=== PATIENT | female | born 1990 | race Caucasian/White ===

== ENCOUNTER 2018-07-14 18:35 | Emergency (ER) | payer OTHER ==
[2018-07-14 19:42] VITALS: BP 112/77; PULSE 66; RESP 18; TEMP 98.8; O2SAT 100; BMI 25.4
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
== END 2018-07-14 23:00 | disposition home or self-care (01) ==
LOC: ED 18:35
DX: M54.2 Cervicalgia (principal); R51 Headache; V49.9XXA Car occupant (driver) (passenger) injured in unspecified traffic accident, initial encounter